=== PATIENT | female | born 1955 | race Caucasian/White ===

== ENCOUNTER 2023-09-17 11:41 | Emergency (ER) | payer MEDICARE, OTHER ==
[~2023-09-17] VITALS: Ht 152.4 cm; Wt 61.6 kg
[2023-09-17] MEDS ORDERED: SODIUM CHLORIDE 0.9% 1,000 ML IV ONE (14:45)
[2023-09-17 14:58] LABS: BILIRUBIN, URINE NEGATIVE (negative); BLOOD/HGB, URINE NEGATIVE (Negative); KETONE, URINE SMALL (Negative); LEUK ESTERASE, URINE TRACE (negative); NITRITE, URINE NEGATIVE (negative)
[2023-09-17] MEDS ORDERED: LOSARTAN POTASS25 MG PO (15:03)
[2023-09-17] MEDS ORDERED: HYDROXYZINE HCL10 MG PO (15:03)
[2023-09-17 15:05] LABS: EOSINOPHILS 1.1 % (0-6); HEMATOCRIT 47.5 % (35.0-50.0); HEMOGLOBIN 16.1 g/dL (12.0-18.0); LYMPHOCYTES 28.4 % (24-44); MCH 28.8 (27-36); MCHC 33.9 g/dl (30-36); MCV 84.9 fl (81-99); MONOCYTES 6.4 % (0-12); NEUTROPHILS 63.1 % (39-80); PLATELET COUNT 299 K/uL (140-440); RDW 14.5 (10.5-15.0)
[2023-09-17 15:05] LABS: EPITHELIAL CELLS, URINE SQUAMOUS 1+ /lpf (0-1+)
[2023-09-17 15:06] LABS: REFLEX CULTURE, URINE No (No)
[2023-09-17 15:20] LABS: ALBUMIN 4.2 g/dL (3.4-5.0); ALBUMIN/GLOBULIN RATIO 1.02 (1.1-2.4); ANION GAP 18.9 (7-21); BILIRUBIN, TOTAL 0.8 ng/dL (0.2-1.0); BUN/CREATININE RATIO 15.55 (6.0-28.6); CALCIUM 9.8 mg/dL (8.5-10.1); CREATININE, SERUM 0.9 mg/dL (0.55-1.02); POTASSIUM 3.9 mmol/L (3.5-5.1); PROTEIN, TOTAL 8.3 g/dL (6.4-8.2)
[2023-09-17] MEDS ORDERED: KETOROLAC TROMETHAMINE 15 MG/ML VIAL IV ONE (17:00)
[2023-09-17] MEDS ORDERED: ACETAMINOPHEN 500 MG TAB PO ONE (17:00)
[2023-09-17 17:39] LABS: INFLUENZA B NAA NEGATIVE (NEGATIVE); RESPIRATORY SYNCYTIAL VIR NAA NEGATIVE (NEGATIVE)
[2023-09-17] MEDS ORDERED: PAXLOVID 300-11 EAC1 PO (18:29)
[2023-09-17 19:05] VITALS: BP 120/78
== END 2023-09-17 19:07 | disposition home or self-care (01) ==
LOC: ED 11:41
PROVIDERS: Emergency Medicine
DX: U07.1 COVID-19 (principal); Z88.5 Allergy status to narcotic agent; Z79.899 Other long term (current) drug therapy
CPT/HCPCS: 36415; 80053; 81001; 85025; 87502; A9270; J1885; J7030; U0002